=== PATIENT | female | born 1990 | race Two or more races ===

== ENCOUNTER 2025-05-13 09:23 | Outpatient (CLI) | payer OTHER | END 2025-05-13 09:27 | disposition home or self-care (01) | LOC: SONOGRAMA 09:23 | PROVIDERS: ATTEND Obstetrics & Gynecology Gynecology | DX: R10.20 Pelvic and perineal pain unspecified side (principal) ==

== ENCOUNTER → 2025-05-16 08:23 | Outpatient (CLI) | payer OTHER ==
[2025-05-16 10:25] LABS: BASO % 0.6 % (0.1-1.2); EOS # 0.10 (0.04-0.54); EOS % 2.0 % (0.7-7.0); LYMPH # 1.86 (1.18-3.74); LYMPH % 37.6 % (19.3-53.1); MEAN PLATELET VOLUME 10.70 fl (9.4-12.4); MONO # 0.43 (0.24-0.82); MONO % 8.7 % (4.7-12.5); NEUT # 2.51 (1.56-6.13); NEUT % 50.7 % (34.0-71.1); RED CELL DISTRIBUTION WIDTH 13.1 % (11.6-14.4)
[2025-05-16 10:50] LABS: ALT/SGPT 20.0 U/L (12-78); AST/SGOT 9.0 U/L (15-37); BILIRUBIN TOTAL 0.49 mg/dL (0.3-1.2); BUN CREA RATIO 20.0 (7.0-25.0); CHOL HDL RATIO 2.5 (0-5.0); CREATININE SERUM 0.74 mg/dL (0.55-1.02); GFR 89.31; GLOBULINA 3.2 G/DL (2.4-3.5); GLUCOSE FASTING 79.0 mg/dL (65-100); HDL 65.0 mg/dl (40-60); LDL 90.0 mg/dl (0-130); OSMOLALITY SERUM 281.0 MOSM/KG (275-295); T4 TOTAL 6.16 UG/DL (4.8-13.9); TSH 1.76 uIU/mL (0.358-3.74); VLDL 8.0 (0-39)
[2025-05-16 10:52] LABS: URINE APPEARANCE Clear; URINE BILIRRUBIN Negative (NEGATIVE); URINE BLOOD Negative; URINE COLOR Yellow; URINE GLUCOSE Negative (NEGATIVE); URINE KETONE Negative (NEGATIVE); URINE LEUKOCYTE Negative; URINE NITRATE Negative; URINE PROTEIN Negative (NEGATIVE); URINE UROBILINOGEN 1.0 E.U./dl
[2025-05-16 10:57] LABS: URINE BACTERIA 28.7 uL (0.0-1933); URINE EPITHELIAL CELLS 3.2 uL (0.0-38.8); URINE RBC 3.2 uL (0.0-20.8)
[2025-05-16 11:06] LABS: URINE CAST 0.14 uL (0.0-1.40); URINE WBC 0.6 uL (0.0-23.2)
== END | disposition home or self-care (01) ==
LOC: LAB 08:23
PROVIDERS: ATTEND Obstetrics & Gynecology Gynecology
DX: R10.20 Pelvic and perineal pain unspecified side (principal); N30.00 Acute cystitis without hematuria; N30.01 Acute cystitis with hematuria; E11.9 Type 2 diabetes mellitus without complications; E78.2 Mixed hyperlipidemia; N95.1 Menopausal and female climacteric states